=== PATIENT | male | born 1975 | race African-American/Black ===

== ENCOUNTER → 2018-05-29 | Outpatient (CLI) | payer OTHER ==
--- NOTE | 2018-05-29 16:51 | RADIOLOGY REPORT (SQ) ---
EXAM DESCRIPTION: MRI LUMBAR SPINE WITHOUT COMPLETED DATE/TIME: 05/29/2018 2:49 pm REASON FOR STUDY: PAIN ([id number]) R52 PAIN, UNSPECIFIED COMPARISON: None. TECHNIQUE: Sagittal and Axial imaging includes T1, T2, STIR and gradient echo sequences. Coronal T2/ HASTE imaging. LIMITATIONS: None. FINDINGS: VISUALIZED UPPER ABDOMEN: Limited evaluation. No acute or suspicious findings suggested. SEGMENTATION: No transitional anatomy. The lowest well-developed disc space is labeled L5-S1. ALIGNMENT: Anatomic. VERTEBRAE: Intact. BONE MARROW: Normal. No marrow replacement or reactive changes. DISC SIGNAL: Normal. No significant abnormal signal or loss of height. POSTERIOR ELEMENTS: Generally intact. No pars defect evident. HARDWARE: None in the spine. CORD AND CONUS: Normal in size and signal intensity. Conus at the T12-L1 level. SOFT TISSUES: No aortic aneurysm seen. No bulky retroperitoneal adenopathy or mass. No paraspinal mas s or fluid. L1-L2: No significant spinal stenosis or exit foraminal stenosis. L2-L3: No significant spinal stenosis or exit foraminal stenosis. L3-L4: No significant spinal stenosis or exit foraminal stenosis. L4-L5: No significant spinal stenosis or exit foraminal stenosis. L5-S1: There is shallow circumferential disc bulge. This appears to displace the traversing nerve ro ot on the right very slightly. LOWER THORACIC: Incompletely imaged. No stenosis seen. SACRUM: Visualized upper sacrum intact. OTHER: No other significant findings. IMPRESSION: Essentially normal study. There is a very shallow broad-based disc bulge at L5-S1 that appears to displace the traversing nerve root on the right by a small amount. TECHNICAL DOCUMENTATION: JOB ID: [id number]- All Rights Reserved Reading location - IP/workstation name: [email or web address]
--- NOTE | 2018-05-29 17:24 | RADIOLOGY REPORT (SQ) ---
EXAM DESCRIPTION: MRI CERVICAL SPINE WITHOUT COMPLETED DATE/TIME: 05/29/2018 2:49 pm REASON FOR STUDY: PAIN ([id number]) R52 PAIN, UNSPECIFIED COMPARISON: CT CERVICAL SPINE 03/15/2016 TECHNIQUE: Sagittal and Axial imaging includes T1, T2, STIR and gradient echo sequences. LIMITATIONS: None. FINDINGS: ALIGNMENT: Normal. VERTEBRAE: Intact. BONE MARROW: Fatty reactive vertebral body endplate changes at C5-6 DISCS: Diffuse decreased T2 weighted intervertebral disc signal. Disc space loss of height from C2-3 through C6-7. HARDWARE: None in the spine. CORD AND BASE OF BRAIN: Abnormal intrinsic cervical cord signal at C5-6 , bandlike transverse increas ed signal is present within the cord itself worrisome for myelomalacia. Minimal increased intrinsic signal along the ventral cord up to the C4-5 disc level. These changes are best shown on sagittal im ages 6 and 7. SOFT TISSUES: No soft tissue masses. C1-C2: No significant spinal stenosis. C2-C3: No significant spinal stenosis or exit foraminal stenosis. C3-C4: No central or right foraminal narrowing. Asymmetric leftward facet and uncovertebral hypertro phy causes high-grade left foraminal stenosis. C4-C5: Broad diffuse posterior disc bulging partly effaces the ventral thecal sac and abuts the ventr al cord. There is abnormal minimal increased intrinsic cord signal [id number] likely du e to old cord contusion or myelomalacia. Borderline central canal narrowing. These changes are best shown on axial T2 series 7, images 49-54. Elsewhere at C4-5, moderate to high-grade right, mild left foraminal narrowing is present. C5-C6: Broad diffuse posterior disc bulge and bony spurring is present. There is effacement of the C SF around the cervical cord and mild ventral cord flattening. Abnormal intrinsic cord signal is pres ent at C5-6 from myelomalacia. Borderline central canal narrowing. These changes are best shown on axial T2 series 7, image 75. Elsewhere at C5-6, high-grade bilateral foraminal narrowing is present. C6-C7: Broad diffuse posterior disc bulge and bony spurring is present causing borderline central can al narrowing. No abnormal intrinsic cord signal or cord flattening. High-grade right greater than l eft foraminal narrowing C7-T1: No significant spinal stenosis or exit foraminal stenosis. UPPER THORACIC: Incompletely imaged. No significant spinal stenosis or exit foraminal stenosis. OTHER: No other significant finding. IMPRESSION: Abnormal intrinsic cord signal likely related to old cord contusion or myelomalacia Multilevel significant central and foraminal stenosis. TECHNICAL DOCUMENTATION: JOB ID: [id number] [facility]- All Rights Reserved Reading location - IP/workstation name: [email or web address]
== END ==
LOC: RAD 13:37
PROVIDERS: ATTEND Family Medicine
DX: M48.03 Spinal stenosis, cervicothoracic region (principal); M51.87 Other intervertebral disc disorders, lumbosacral region
CPT/HCPCS: 72141; 72148